=== PATIENT | male | born 1935 | race Caucasian/White ===

== ENCOUNTER → 2016-06-03 | Outpatient (REF) | payer MEDICARE, OTHER ==
[2016-06-03 10:55] LABS: BILIRUBIN,URINE Negative (Negative); CLARITY,URINE Clear; COLOR,URINE Yellow; GLUCOSE, URINE (UA) Negative (Negative); LEUKOCYTE ESTERASE, URINE Negative (Negative); MEAN CORPUSCULAR HGB CONC 33.4 g/dL (31.0-37.0); MEAN PLATELET VOLUME 10.8 FL (6.0-9.5); PH,URINE 5.5 (5.0 - 8.0); PLATELET COUNT 193 10^3uL (150-450); UROBILINOGEN,URINE 0.2 mg/dL (0.2-1.0); WHITE BLOOD COUNT 5.46 10^3uL (4.0-11.0)
[2016-06-03 11:00] LABS: MEAN CORPUSCULAR HEMOGLOBIN 32.8 PG (26.0-34.0); MEAN CORPUSCULAR VOLUME 98 FL (80-100)
[2016-06-03 11:16] LABS: ALBUMIN 4.4 g/dL (3.4-5.0); ANION GAP 17.7 MEQ/L (3-15); BAND NEUTROPHILS % 1 % (0-6); CALCULATED IONIZED CALCIUM 3.9 mg/dL (3.8-4.6); EOSINOPHILS % 2 % (0-4); LYMPHOCYTES # 1.6 #; MONOCYTES # 0.7 #; MONOCYTES % 13 % (3-11); RBC MORPH NORMAL (NORMAL); SEGMENTED NEUTROPHILS % 55 % (51-67); TOTAL CELLS COUNTED 100; TOTAL PROTEIN 7.8 g/dL (6.4-8.5)
== END ==
LOC: LAB 09:54
PROVIDERS: ATTEND Nurse Practitioner Family
DX: I10 Essential (primary) hypertension (principal); E89.0 Postprocedural hypothyroidism; M10.9 Gout, unspecified
CPT/HCPCS: 80053; 80061; 81003; 84443; 84550; 85025